=== PATIENT | male | born 1980 | race Caucasian/White ===

== ENCOUNTER 2020-01-05 14:32 | Emergency (ER) | payer MEDICAID ==
[~2020-01-05] VITALS: Ht 172.7 cm; Wt 59.0 kg
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
[2020-01-05 15:42] LABS: BASOPHILS # (AUTO) 0.1 /CMM (0.0-0.2); BASOPHILS % (AUTO) 0.8 % (0.0-2.0); EOSINOPHILS % (AUTO) 2.2 % (0.0-6.0); HEMATOCRIT 45 % (39-51); HEMOGLOBIN 15.3 g/dL (13.5-17.5); LYMPHOCYTES # (AUTO) 2.6 /CMM (0.8-4.8); MEAN CORPUSCULAR HGB CONC 34 g/dl (31.0-36.0); MEAN CORPUSCULAR VOLUME 97 fL (80-96); MONOCYTES # (AUTO) 0.4 /CMM (0.1-1.30); NEUTROPHILS # (AUTO) 5.7 /CMM (1.8-8.9); PLATELET COUNT (AUTO) 278 /CMM (150-450); RED BLOOD CELL COUNT(AUTO) 4.63 MIL/uL (4.5-6.0)
[2020-01-05 15:50] LABS: CALCIUM, SERUM 8.9 mg/dL (8.5-10.1); CARBON DIOXIDE 23 mmol/L (21-32); CHLORIDE 102 mmol/L (98-107); GLUCOSE 83 mg/dL (74-106); POTASSIUM 4.1 mmol/L (3.5-5.1); SODIUM SERUM 134 mmol/L (136-145); UREA NITROGEN, BLOOD 20 mg/dL (7-18)
[2020-01-05 15:56] LABS: ALANINE AMINOTRANSFERASE 23 U/L (12-78); ALBUMIN 4.1 g/dL (3.4-5.0); ALCOHOL, BLOOD 142 mg/dL (0-0); ALKALINE PHOSPHATASE 84 U/L (46-116); ASPARTATE AMINOTRANSFERASE 24 U/L (15-37); BILIRUBIN,DIRECT 0.2 mg/dL (0.0-0.2); BILIRUBIN,TOTAL 0.8 mg/dL (0.2-1.0); TOTAL PROTEIN, SERUM 7.4 g/dL (6.4-8.2)
[2020-01-05 15:57] LABS: ACETAMINOPHEN < 2 ug/ml (10-30)
[2020-01-05] MEDS ORDERED: LORAZEPAM INJ 2 MG/ML VIAL ONE (17:20)
[2020-01-05] MEDS ORDERED: diphenhydrAMINE HCL 50 MG/ML VIAL ONE (17:20)
[2020-01-05] MEDS ORDERED: HALOPERIDOL LACTATE INJ 5 MG/ML VIAL ONE (17:20)
--- NOTE | 2020-01-05 17:20 | NUR ---
PT AGITATED, VERBALLY ABUSIVE TO ED STAFF. DR SALDAÑA MADE AWARE.
[2020-01-05] MEDS ORDERED: HALOPERIDOL LACTATE INJ 5 MG/ML VIAL IM ONE (17:30)
[2020-01-05] MEDS ORDERED: diphenhydrAMINE HCL 50 MG/ML VIAL IM ONE (17:30)
[2020-01-05] MEDS ORDERED: LORAZEPAM INJ 2 MG/ML VIAL IM ONE (17:30)
[2020-01-05 17:31] LABS: BILIRUBIN,URINE SMALL (NEGATIVE); BLOOD, URINE Small Ery/uL (NEGATIVE); COLOR,URINE DARK YELLOW (YELLOW); LEUKOCYTE ESTERASE ,URINE Negative (NEGATIVE); NITRITE, URINE Negative (NEGATIVE); PROTEIN,URINE Negative (NEGATIVE); UGLUCOSE Negative (NEGATIVE)
[2020-01-05 17:37] LABS: BACTERIA,URINE Few /HPF (None Seen); SQUAMOUS EPITHELIAL CELL,UR Few /HPF (None Seen); WBC,URINE 0-2 /HPF (0-3)
[2020-01-05 17:38] LABS: MUCUS,URINE Many /LPF (None Seen)
--- NOTE | 2020-01-05 21:10 | NUR ---
SPOKE TO CHERYLE FROM [facility] INTAKE REGARDING PT. CLINICAL FAXED TO [facility] FOR 2220 PSYCH ADMISSION.
--- NOTE | 2020-01-05 22:06 | NUR ---
CALLED [facility] FOR PSYCH EVAL, LEFT VOICEMAIL
--- NOTE | 2020-01-05 22:10 | NUR ---
CITLALY GOTTI 0460
--- NOTE | 2020-01-05 23:15 | NUR ---
BREEZY PANELBOARD TANK PUMPER HERE TO JOSÉ MIGUEL MULLIGAN
--- NOTE | 2020-01-06 08:40 | NUR ---
ABDIEL was notified by Lesia MCLAIN that the pt. was accepted to [facility] [[address] [facility] [address]; [phone]]. ABDIEL called [facility] and spoke to Candelario who stated that the accepting MD is Dr. Peres. Per Candelario [facility] ED nurse to call [facility] to provide nurse to nurse report and pt. will be assigned a room upon arrival. Noted. This ABDIEL called [facility] ED and spoke to Amanda and provided above stated information and requested for transportation to be arranged. Amanda expressed understanding will follow up. SW will be available as needed.
--- NOTE | 2020-01-06 08:51 | NUR ---
PT ACCEPTED AT [facility] UNDER DR. MCCORD. [facility] [address] [facility] [address] NUMBER FOR REPORT [phone]
--- NOTE | 2020-01-06 08:58 | NUR ---
CALLED AM [facility] ETA 0968 ELADIA SCHMIDT
--- NOTE | 2020-01-06 08:59 | NUR ---
REPORT GIVEN TO MICHELLE WATERS AT [facility] [phone]
--- NOTE | 2020-01-06 09:51 | NUR ---
REPORT GIVEN TO [employer] PERFORATOR. PATIENT A/OX4, BREATHING EVEN AND UNLABORED, NO SOB NOTED. VITALS STABLE. NO BELONGINGS.
--- NOTE | 2020-01-06 09:58 | NUR ---
Patient discharged to home in stable condition. Written and verbal after care instructions given. Patient verbalizes understanding of instruction. repot given to manager retirement for tran [facility]
[2020-01-06 09:59] VITALS: BP 117/55
== END 2020-01-06 09:59 ==
LOC: ER 14:34
DX: R46.2 Strange and inexplicable behavior (principal); Z20.828 Contact with and (suspected) exposure to other viral communicable diseases; R03.0 Elevated blood-pressure reading, without diagnosis of hypertension; R78.0 Finding of alcohol in blood; Y90.6 Blood alcohol level of 120-199 mg/100 ml
CPT/HCPCS: 36415; 80048; 80076; 80299; 80307; 80320; 81001; 85025; 87426; 96372 ×2; 99285; C9803; J1200; J1630; J2060; G0480